=== PATIENT | male | born 1980 | race Hispanic/Latino ===

== ENCOUNTER 2017-12-27 19:33 | Emergency (ER) | payer SELFPAY | END 2017-12-27 20:01 | disposition home or self-care (01) | LOC: EDH 19:33 | DX: B35.3 Tinea pedis (principal); Z91.041 Radiographic dye allergy status; Z91.013 Allergy to seafood ==

== ENCOUNTER 2018-02-06 00:32 | Emergency (ER) | payer OTHER ==
[2018-02-06] MEDS ORDERED: TETANUS/DIPHTHERIA TOXOID [ADULT] 0.5 ML VIAL IM ONE (01:09)
== END 2018-02-06 01:20 | disposition home or self-care (01) ==
LOC: EDH 00:32
DX: S61.311A Laceration without foreign body of left index finger with damage to nail, initial encounter (principal); Z91.041 Radiographic dye allergy status; Z91.013 Allergy to seafood; W26.0XXA Contact with knife, initial encounter; Y93.89 Activity, other specified; Y92.69 Other specified industrial and construction area as the place of occurrence of the external cause; Y99.8 Other external cause status
CPT/HCPCS: 90471; 90714

== ENCOUNTER 2021-06-09 18:51 | Emergency (ER) | payer OTHER ==
[~2021-06-09] VITALS: Ht 167.6 cm; Wt 74.8 kg
[2021-06-09 18:53] VITALS: BP 151/76
[2021-06-09 18:54] VITALS: BP 151/76
== END 2021-06-09 23:12 | disposition left against medical advice (07) ==
LOC: EDH 18:51
DX: M79.672 Pain in left foot (principal); Z53.21 Procedure and treatment not carried out due to patient leaving prior to being seen by health care provider